=== PATIENT | male | born 1960 | race Caucasian/White ===

== ENCOUNTER 2017-07-16 22:38 | Inpatient (IN) | payer OTHER ==
--- NOTE | 2017-07-16 23:07 | HP ---
COWS - Scale GI Upset > 30mins: 3= Vomiting/Diarrhea CIWA Score - CIWA Score Nausea/Vomitin Muscle Tremors: 4-Moderate,w/Arms Extend Anxiety: 3 Agitation: 3 Paroxysmal Sweats: 3 Orientation: 0-Oriented Tacttile Disturbances: 0-None Auditory Disturbances: 0-None Visual Disturbances: 0-None Headache: 3-Moderate CIWA-Ar Total Score: 18 Admission ROS S - HPI Chief Complaint: Alcohol withdrawal symptoms Allergies/Adverse Reactions: Allergies Allergy/AdvReac Type Severity Reaction Status Date / Time Fish Containing Products Allergy Rash Verified 07/16/17 23:06 fish derived Allergy Rash Verified 07/16/17 23:06 morphine Allergy Rash Verified 07/16/17 23:06 History of Present Illness: 56 years old male with a long history of alcohol dependence is admitted for detox. Patient has been in previous detox and reports 2 years of sobriety. Patient has medical history of AFIB and denies suicidal ideation at this time. Exam Limitations: No Limitations - Ebola screening Have you traveled outside of the country in the last 21 days: No Have you had contact with anyone from an Ebola affected area: No Have you been sick,other than usual withdrawal symptoms: No Do you have a fever: No - Review of Systems Constitutional: Malaise, Night Sweats, Changes in sleep, Weakness EENT: reports: No Symptoms Reported Respiratory: reports: No Symptoms reported Cardiac: reports: Palpitations (H/O AFIB) GI: reports: Diarrhea (x 3), Nausea, Poor Fluid Intake, Vomiting, Abdominal cramping : reports: No Symptoms Reported Musculoskeletal: reports: Joint Pain, Muscle Pain, Muscle Weakness, Neck Pain Integumentary: reports: Flushing, Sweating Neuro: reports: Tingling, Tremors Endocrine: reports: No Symptoms Reported, Flushing, Increased Thirst, Increased Urine Hematology: reports: No Symptoms Reported Psychiatric: reports: Mood/Affect Appropiate, Orientated x3, Anxious Other Systems: Reviewed and Negative Patient History - Patient Medical History Hx Anemia: No Hx Asthma: No Hx Chronic Obstructive Pulmonary Disease (COPD): No Hx Cancer: No Hx Cardiac Disorders: Yes (AFIB) Hx Congestive Heart Failure: No Hx Hypertension: No Hx Hypercholesterolemia: No Hx Pacemaker: No HX Cerebrovascular Accident: No Hx Seizures: No Hx Dementia: No Hx Diabetes: No Hx Gastrointestinal Disorders: No Hx Liver Disease: No Hx Genitourinary Disorders: No Hx Sexually Transmitted Disorders: No Hx Renal Disease (ESRD): No Hx Thyroid Disease: No Hx Human Immunodeficiency Virus (HIV): No (Negative 2015) Hx Hepatitis C: No (Negative 2015) Hx Depression: Yes Hx Suicide Attempt: No (Denies suicidal ideation) Hx Bipolar Disorder: No Hx Schizophrenia: No - Patient Surgical History Past Surgical History: Yes Hx Neurologic Surgery: No Hx Cataract Extraction: No Hx Cardiac Surgery: No Hx Lung Surgery: No Hx Abdominal Surgery: No Hx Appendectomy: No Hx Cholecystectomy: No Hx Genitourinary Surgery: No Hx Orthopedic Surgery: Yes (L ANKLE FX SX IN 1999) Anesthesia Reaction: No - PPD History Previous Implant?: Yes Documented Results: Negative w/o proof Implanted On Prior R Admission?: Yes Date: 12/28/12 PPD to be Administered?: Yes - Reproductive History Patient is a Female of Child Bearing Age (11 -55 yrs old): No (Male) - Smoking Cessation Smoking history: Current every day smoker Have you smoked in the past 12 months: Yes Aproximately how many cigarettes per day: 20 Hx Chewing Tobacco Use: No Initiated information on smoking cessation: Yes 'Breaking Loose' booklet given: 07/16/17 - Substance & Tx. History Hx Alcohol Use: Yes Hx Substance Use: No Substance Use Type: Alcohol Hx Substance Use Treatment: Yes ([facility] 06/2017) - Substances Abused Alcohol Route: Oral Frequency: Daily Amount used: beer- 2 six packs Age of first use: 15 Date of Last Use: 07/16/17 Family Disease History - Family Disease History Family Disease History: CA: Father (HAD CA. OF THE COLON AND ), Other: Mother (HAD CVA AND ) Admission Physical Exam [facility] - Physical General Appearance: Yes: Moderate Distress HEENTM: Yes: EOMI, Normal Voice, ROSLYN Respiratory: Yes: Lungs Clear, Normal Breath Sounds, No Respiratory Distress Neck: Yes: Supple Breast: Yes: Breast Exam Deferred Cardiology: Yes: Regular Rhythm, Regular Rate, S1, S2 Abdominal: Yes: Normal Bowel Sounds, Soft Genitourinary: Yes: Within Normal Limits Back: Yes: Normal Inspection Musculoskeletal: Yes: Back pain, Muscle Pain, Muscle weakness Extremities: Yes: Tremors, Other (surgical scar to left foot) Neurological: Yes: Fully Oriented, Alert, Normal Response Integumentary: Yes: Dry, Other (left arm tatoo) Lymphatic: Yes: Within Normal Limits - Diagnostic (1) Alcohol dependence with uncomplicated withdrawal Current Visit: Yes Status: Chronic (2) Afib Current Visit: Yes Status: Chronic (3) Nicotine dependence Current Visit: Yes Status: Chronic (4) Syncope Current Visit: No Status: Chronic Cleared for Admission [facility] - Detox or Rehab [facility] Level of Care: Medically Managed Detox Regimen/Protocol: Librium [facility] Breath Alcohol Content Breath Alcohol Content: 0.224
[2017-07-16 23:08] VITALS: BMI 31.5
[2017-07-16] MEDS ORDERED: MAG HYDROX/AL HYDROX/SIMETH 30 ML UNIT-DOSE CUP PO PRN (23:35)
[2017-07-16] MEDS ORDERED: MAGNESIUM HYDROX 2400MG/30ML ORAL SUSPENSION 30 ML CUP PO PRN (23:35)
[2017-07-16] MEDS ORDERED: hydrOXYzine PAMOATE 50 MG CAPSULE (FP) PO PRN (23:35)
[2017-07-16] MEDS ORDERED: NICOTINE POLACRILEX 2 MG GUM BUC PRN (23:35)
[2017-07-16] MEDS ORDERED: LOPERAMIDE HCL 2 MG CAPSULE PO PRN (23:35)
[2017-07-16] MEDS ORDERED: P-EPHED 60MG/TRIPROLIDI 2.5MG TABLET PO PRN (23:35)
[2017-07-16] MEDS ORDERED: ACETAMINOPHEN 325 MG TABLET (FP) PO PRN (23:35)
[2017-07-16] MEDS ORDERED: IBUPROFEN 400 MG TABLET (FP) PO PRN (23:35)
[2017-07-16] MEDS ORDERED: MAGNESIUM CITRATE 300 ML BOTTLE PO PRN (23:35)
[2017-07-16] MEDS ORDERED: MENTHOL/PHENOL 1 EACH UD MM PRN (23:35)
[2017-07-16] MEDS ORDERED: guaiFENesin/D-METHORPHAN HB 10 ML UNIT-DOSE CUPS PO PRN (23:35)
[2017-07-17] MEDS ORDERED: chlordiazePOXIDE HCL 25 MG CAPSULE PO PRN (00:09)
[2017-07-17] MEDS ORDERED: chlordiazePOXIDE HCL 25 MG CAPSULE PO ONE (00:30)
[2017-07-17] MEDS: chlordiazePOXIDE HCL 25 MG CAPSULE PO SCH ×4 (06:18→22:24)
--- NOTE | 2017-07-17 07:40 | CONSULT ---
[facility] Psychiatric Consult - Data Date of interview: 07/17/17 Admission source: [facility] Identifying data: This is 56 years old male with no psychiatric hospitalization history itoxicated with ;. Alcohol and Nicotine Substance Abuse History: - Smoking Cessation. Smoking history: Current every day smoker. Have you smoked in the past 12 months: Yes. Aproximately how many cigarettes per day: 20. Hx Chewing Tobacco Use: No. Initiated information on smoking cessation: Yes. 'Breaking Loose' booklet given: 07/16/17. - Substance & Tx. History. Hx Alcohol Use: Yes. Hx Substance Use: No. Substance Use Type : Alcohol. Hx Substance Use Treatment: Yes ([facility] 06/2017). - Substances Abused. Alcohol. Route: Oral. Frequency: Daily. Amount used: beer- 2 six packs. Age of first use: 15. Date of Last Use: 07/16/17 Medical History: A. Fib, Syncope history Psychiatric History: Patient reports history of deprssion,reports no medications taking prior to admission Physical/Sexual Abuse/Trauma History: Denies Additional Comment: Obnservation. Detox Unit Care Protocol Mental Status Exam - Mental Status Exam Alert and Oriented to: Person Cognitive Function: Fair Patient Appearance: Unkempt Mood: Sad Affect: Flat Patient Behavior: Sedated Speech Pattern: Delayed Voice Loudness: Mildly Soft/Quiet Thought Process: Circumstantial Thought Disorder: Being Controlled Hallucinations: Denies Suicidal Ideation: Denies Homicidal Ideation: Denies Insight/Judgement: Fair Sleep: Difficulty falling asleep Appetite: Fair Muscle strength/Tone: Mild Hypotonicity Gait/Station: Shuffling Additional Comments: Obnservation. Detox Unit Care Protocol Psychiatric Findings - Problem List ([place] 1, 2,3) (1) Drug-induced mood disorder Current Visit: Yes Status: Acute (2) Alcohol dependence with uncomplicated withdrawal Current Visit: Yes Status: Chronic (3) Nicotine dependence Current Visit: Yes Status: Chronic - Initial Treatment Plan Initial Treatment Plan: Obnservation. Detox Unit Care Protocol
[2017-07-17] MEDS ORDERED: RIVAROXABAN 20 MG TABLET PO SCH (10:00)
[2017-07-17 10:08] LABS: MCHC 33.8 g/dl (32.0-35.9); MEAN CELL VOLUME 94.8 fl (80-96); MEAN PLT VOLUME 8.3 fl (7.5-11.1); PLATELET COUNT 306 K/MM3 (134-434); RDW 14.1 % (11.9-15.9); WHITE BLOOD COUNT 6.7 K/mm3 (4.0-10.0)
--- NOTE | 2017-07-17 10:10 | PN ---
BHS CIWA - CIWA Score Nausea/Vomitin Muscle Tremors: 3 Anxiety: 3 Agitation: 2 Paroxysmal Sweats: 1-Minimal Palms Moist Orientation: 0-Oriented Tacttile Disturbances: 1-Very Mild Itch/Numbness Auditory Disturbances: 1-Very Mild Visual Disturbances: 0-None Headache: 2-Mild CIWA-Ar Total Score: 16 BHS Progress Note (SOAP) Subjective: ALERT,IRRITABLE,ANXIOUS,INTERRUPTED SLEEP,TREMOR Objective: 07/17/17 10:09 Vital Signs Temperature 97.8 F 07/17/17 10:02 Pulse Rate 94 H 07/17/17 10:02 Respiratory Rate 18 07/17/17 10:02 Blood Pressure 145/78 07/17/17 10:02 O2 Sat by Pulse Oximetry (%) Assessment: 07/17/17 10:10 WITHDRAWAL SYMPTOM Plan: CONTINUE DETOX
[2017-07-17] MEDS ORDERED: METOPROLOL SUCCINATE 25 MG TAB.SR.24H (FP) PO ONE (10:20)
[2017-07-17 10:21] LABS: ALBUMIN 3.6 g/dl (3.4-5.0); ALK PHOS 68 U/L (45-117); ANION GAP 13 (8-16); BILIRUBIN,TOTAL 0.3 mg/dL (0.2-1.0); CALCIUM 9.1 mg/dL (8.5-10.1); CO2 24 mmol/L (21-32); CREATININE 0.7 mg/dL (0.7-1.3); GLUCOSE,RANDOM 105 mg/dL (74-106); SGOT/AST 32 U/L (15-37); SGPT/ALT 40 U/L (12-78); TOT PROT 6.9 g/dl (6.4-8.2)
[2017-07-17] MEDS: PRENATAL VITAMINS W/ FOLIC ACID TABLET (FP) PO SCH (10:33)
[2017-07-17] MEDS: NICOTINE 14 MG/24 HOURS TOPICAL PATCH TD SCH (10:33)
--- NOTE | 2017-07-17 12:17 | EKG ---
Test Reason : Blood Pressure : / mmHG Vent. Rate : 075 BPM Atrial Rate : 075 BPM P-R Int : 158 ms QRS Dur : 086 ms QT Int : 380 ms P-R-T Axes : 063 057 012 degrees QTc Int : 424 ms NORMAL SINUS RHYTHM NORMAL ECG NO PREVIOUS ECGS AVAILABLE Confirmed by ARPITA PONCE MD ([id number]) on 07/17/2017 12:17:34 PM Referred By: Confirmed By:ARPITA PONCE MD
[2017-07-17 14:33] LABS: URINE APPEARANCE SLCLOUDY; URINE BILIRUBIN NEGATIVE (NEGATIVE); URINE BLOOD 1+ (NEGATIVE); URINE COLOR YELLOW; URINE GLUCOSE (UA) NEGATIVE (NEGATIVE); URINE KETONE NEGATIVE (NEGATIVE); URINE NITRITE NEGATIVE (NEGATIVE); URINE PROTEIN NEGATIVE (NEGATIVE); URINE UROBILINOGEN NEGATIVE mg/dL (0.2-1.0)
[2017-07-17 15:14] LABS: URINE BACTERIA RARE /hpf (NONE SEEN); URINE HYALINE CAST 1 /lpf; URINE MUCUS MODERATE; URINE RBC 2; URINE WBC 1
[2017-07-17] MEDS: RIVAROXABAN 20 MG TABLET PO SCH (17:46)
[2017-07-17 21:24] LABS: URINE LEUK ESTERASE Negative (NEGATIVE)
[2017-07-17] MEDS: THIAMINE HCL 100 MG TABLET (FP) PO SCH (22:24)
[2017-07-18] MEDS: chlordiazePOXIDE HCL 25 MG CAPSULE PO SCH ×4 (05:37→23:25)
[2017-07-18] MEDS: NICOTINE 14 MG/24 HOURS TOPICAL PATCH TD SCH (10:10)
[2017-07-18] MEDS: METOPROLOL SUCCINATE 25 MG TAB.SR.24H (FP) PO SCH (10:10)
[2017-07-18] MEDS: PRENATAL VITAMINS W/ FOLIC ACID TABLET (FP) PO SCH (10:10)
--- NOTE | 2017-07-18 11:39 | PN ---
S CIWA - CIWA Score Nausea/Vomitin Muscle Tremors: 3 Anxiety: 3 Agitation: 2 Paroxysmal Sweats: 1-Minimal Palms Moist Orientation: 0-Oriented Tacttile Disturbances: 1-Very Mild Itch/Numbness Auditory Disturbances: 1-Very Mild Visual Disturbances: 0-None Headache: 2-Mild CIWA-Ar Total Score: 16 BHS Progress Note (SOAP) Subjective: ALERT,IRRITABLE,ANXIOUS,INTERRUPTED SLEEP,TREMOR Objective: 07/18/17 11:37 Vital Signs Temperature 97.0 F L 07/18/17 10:37 Pulse Rate 73 07/18/17 10:37 Respiratory Rate 16 07/18/17 10:37 Blood Pressure 148/87 07/18/17 10:37 O2 Sat by Pulse Oximetry (%) Laboratory Last Values WBC 6.7 K/mm3 (4.0-10.0) 07/17/17 07:00 RBC 4.71 M/mm3 (4.00-5.60) 07/17/17 07:00 Hgb 15.1 GM/dL (11.7-16.9) 07/17/17 07:00 Hct 44.6 % (35.4-49) 07/17/17 07:00 MCV 94.8 fl (80-96) 07/17/17 07:00 MCH 32.0 pg (25.7-33.7) 07/17/17 07:00 MCHC 33.8 g/dl (32.0-35.9) 07/17/17 07:00 RDW 14.1 % (11.9-15.9) 07/17/17 07:00 Plt Count 306 K/MM3 (134-434) D 07/17/17 07:00 MPV 8.3 fl (7.5-11.1) 07/17/17 07:00 Sodium 143 mmol/L (136-145) 07/17/17 07:00 Potassium 3.8 mmol/L (3.5-5.1) 07/17/17 07:00 Chloride 106 mmol/L (98-107) 07/17/17 07:00 Carbon Dioxide 24 mmol/L (21-32) 07/17/17 07:00 Anion Gap 13 (8-16) 07/17/17 07:00 BUN 8 mg/dL (7-18) 07/17/17 07:00 Creatinine 0.7 mg/dL (0.7-1.3) D 07/17/17 07:00 Creat Clearance w eGFR > 60 (>60) 07/17/17 07:00 Random Glucose 105 mg/dL (74-106) 07/17/17 07:00 Calcium 9.1 mg/dL (8.5-10.1) 07/17/17 07:00 Total Bilirubin 0.3 mg/dL (0.2-1.0) D 07/17/17 07:00 AST 32 U/L (15-37) D 07/17/17 07:00 ALT 40 U/L (12-78) 07/17/17 07:00 Alkaline Phosphatase 68 U/L (45-117) 07/17/17 07:00 Total Protein 6.9 g/dl (6.4-8.2) 07/17/17 07:00 Albumin 3.6 g/dl (3.4-5.0) 07/17/17 07:00 Urine Color Yellow 07/17/17 09:50 Urine Appearance Slcloudy 07/17/17 09:50 Urine pH 5.0 (5.0-8.0) 07/17/17 09:50 Ur Specific [place] 1.025 (1.001-1.035) 07/17/17 09:50 Urine Protein Negative (NEGATIVE) 07/17/17 09:50 Urine Glucose (UA) Negative (NEGATIVE) 07/17/17 09:50 Urine Ketones Negative (NEGATIVE) 07/17/17 09:50 Urine Blood 1+ (NEGATIVE) H 07/17/17 09:50 Urine Nitrite Negative (NEGATIVE) 07/17/17 09:50 Urine Bilirubin Negative (NEGATIVE) 07/17/17 09:50 Urine Urobilinogen Negative mg/dL (0.2-1.0) 07/17/17 09:50 Ur Leukocyte Esterase Negative (NEGATIVE) 07/17/17 09:50 Urine WBC (Auto) 1 07/17/17 09:50 Urine RBC (Auto) 2 07/17/17 09:50 Ur Epithelial Cells Rare /hpf (FEW) 07/17/17 09:50 Urine Bacteria Rare /hpf (NONE SEEN) 07/17/17 09:50 Hyaline Casts 1 /lpf 07/17/17 09:50 Urine Mucus Moderate 07/17/17 09:50 RPR Titer Nonreactive (NONREACTIVE) 07/17/17 07:00 Assessment: 07/18/17 11:38 WITHDRAWAL SYMPTOM Plan: CONTINUE DETOX
[2017-07-18] MEDS: RIVAROXABAN 20 MG TABLET PO SCH (17:28)
[2017-07-18] MEDS: THIAMINE HCL 100 MG TABLET (FP) PO SCH (23:26)
[2017-07-19] MEDS: chlordiazePOXIDE 5 MG CAPSULE PO SCH ×4 (05:31→22:24)
--- NOTE | 2017-07-19 09:44 | PN ---
BHS Progress Note (SOAP) Subjective: interrupted sleep, Objective: 07/19/17 09:42 Vital Signs Temperature 96.8 F L 07/19/17 06:03 Pulse Rate 51 L 07/19/17 06:03 Respiratory Rate 16 07/19/17 06:03 Blood Pressure 147/77 07/19/17 06:03 O2 Sat by Pulse Oximetry (%) pt aox3 in nad ambulating Assessment: 07/19/17 09:43 withdrawal sx's Plan: cont. detox increase fluids d/c in am
[2017-07-19] MEDS: PRENATAL VITAMINS W/ FOLIC ACID TABLET (FP) PO SCH (10:06)
[2017-07-19] MEDS: METOPROLOL SUCCINATE 25 MG TAB.SR.24H (FP) PO SCH (10:06)
[2017-07-19] MEDS: NICOTINE 14 MG/24 HOURS TOPICAL PATCH TD SCH (10:07)
[2017-07-19] MEDS: RIVAROXABAN 20 MG TABLET PO SCH (17:32)
[2017-07-19] MEDS: THIAMINE HCL 100 MG TABLET (FP) PO SCH (22:24)
[2017-07-20] MEDS ORDERED: chlordiazePOXIDE HCL 10 MG CAPSULE PO SCH (05:00)
[2017-07-20 06:28] VITALS: BP 116/62; PULSE 48; TEMP 97.2
[2017-07-20] MEDS: PRENATAL VITAMINS W/ FOLIC ACID TABLET (FP) PO SCH (09:18)
[2017-07-20] MEDS: METOPROLOL SUCCINATE 25 MG TAB.SR.24H (FP) PO SCH (09:18)
[2017-07-20] MEDS: NICOTINE 14 MG/24 HOURS TOPICAL PATCH TD SCH (09:19)
--- NOTE | 2017-07-20 10:34 | DS ---
[facility] Detox Discharge Summary Admission Date: 07/16/17 Discharge Date: 07/20/17 - History Present History: Alcohol Dependence Pertinent Past History: HTN AF by hx. - Physical Exam Results Vital Signs: Vital Signs Temperature 97.2 F L 07/20/17 06:00 Pulse Rate 48 L 07/20/17 06:00 Respiratory Rate 18 07/20/17 06:00 Blood Pressure 116/62 07/20/17 06:00 O2 Sat by Pulse Oximetry (%) Pertinent Admission Physical Exam Findings: Withdrawal sx. Laboratory Last Values WBC 6.7 K/mm3 (4.0-10.0) 07/17/17 07:00 RBC 4.71 M/mm3 (4.00-5.60) 07/17/17 07:00 Hgb 15.1 GM/dL (11.7-16.9) 07/17/17 07:00 Hct 44.6 % (35.4-49) 07/17/17 07:00 MCV 94.8 fl (80-96) 07/17/17 07:00 MCH 32.0 pg (25.7-33.7) 07/17/17 07:00 MCHC 33.8 g/dl (32.0-35.9) 07/17/17 07:00 RDW 14.1 % (11.9-15.9) 07/17/17 07:00 Plt Count 306 K/MM3 (134-434) D 07/17/17 07:00 MPV 8.3 fl (7.5-11.1) 07/17/17 07:00 Sodium 143 mmol/L (136-145) 07/17/17 07:00 Potassium 3.8 mmol/L (3.5-5.1) 07/17/17 07:00 Chloride 106 mmol/L (98-107) 07/17/17 07:00 Carbon Dioxide 24 mmol/L (21-32) 07/17/17 07:00 Anion Gap 13 (8-16) 07/17/17 07:00 BUN 8 mg/dL (7-18) 07/17/17 07:00 Creatinine 0.7 mg/dL (0.7-1.3) D 07/17/17 07:00 Creat Clearance w eGFR > 60 (>60) 07/17/17 07:00 Random Glucose 105 mg/dL (74-106) 07/17/17 07:00 Calcium 9.1 mg/dL (8.5-10.1) 07/17/17 07:00 Total Bilirubin 0.3 mg/dL (0.2-1.0) D 07/17/17 07:00 AST 32 U/L (15-37) D 07/17/17 07:00 ALT 40 U/L (12-78) 07/17/17 07:00 Alkaline Phosphatase 68 U/L (45-117) 07/17/17 07:00 Total Protein 6.9 g/dl (6.4-8.2) 07/17/17 07:00 Albumin 3.6 g/dl (3.4-5.0) 07/17/17 07:00 Urine Color Yellow 07/17/17 09:50 Urine Appearance Slcloudy 07/17/17 09:50 Urine pH 5.0 (5.0-8.0) 07/17/17 09:50 Ur Specific [place] 1.025 (1.001-1.035) 07/17/17 09:50 Urine Protein Negative (NEGATIVE) 07/17/17 09:50 Urine Glucose (UA) Negative (NEGATIVE) 07/17/17 09:50 Urine Ketones Negative (NEGATIVE) 07/17/17 09:50 Urine Blood 1+ (NEGATIVE) H 07/17/17 09:50 Urine Nitrite Negative (NEGATIVE) 07/17/17 09:50 Urine Bilirubin Negative (NEGATIVE) 07/17/17 09:50 Urine Urobilinogen Negative mg/dL (0.2-1.0) 07/17/17 09:50 Ur Leukocyte Esterase Negative (NEGATIVE) 07/17/17 09:50 Urine WBC (Auto) 1 07/17/17 09:50 Urine RBC (Auto) 2 07/17/17 09:50 Ur Epithelial Cells Rare /hpf (FEW) 07/17/17 09:50 Urine Bacteria Rare /hpf (NONE SEEN) 07/17/17 09:50 Hyaline Casts 1 /lpf 07/17/17 09:50 Urine Mucus Moderate 07/17/17 09:50 RPR Titer Nonreactive (NONREACTIVE) 07/17/17 07:00 labs noted - Treatment Hospital Course: Detox Protocol Followed, Detoxed Safely, Responded well, Discharged Condition Good, Rehab Referral Accepted Patient has Accepted a Rehab Referral to: [facility] on 07/22/17 - Medication Discharge Medications: Ambulatory Orders Rivaroxaban [Xarelto -] 20 mg PO DAILY 07/16/17 Metoprolol Succinate [Toprol Xl -] 25 mg PO DAILY 07/20/17 - Diagnosis (1) Drug-induced mood disorder Status: Acute (2) Essential hypertension Status: Acute (3) History of atrial dilatation Status: Acute (4) Alcohol dependence with uncomplicated withdrawal Status: Acute (5) Nicotine dependence Status: Chronic Qualifiers: Nicotine product type: cigarettes Substance use status: uncomplicated Qualified Code(s): F17.210 - Nicotine dependence, cigarettes, uncomplicated - AMA Did Patient Leave Against Medical Advice: No
== END 2017-07-20 09:25 | disposition home or self-care (01) | DRG 775 ==
LOC: YASAS 22:38 → Y6N 23:30
PROVIDERS: ADMIT Internal Medicine; ATTEND Internal Medicine
PROC: HZ2ZZZZ Detoxification Services for Substance Abuse Treatment (ICD-10-PCS; principal; 2017-07-16)
DX: F10.230 Alcohol dependence with withdrawal, uncomplicated (principal); F17.210 Nicotine dependence, cigarettes, uncomplicated; F19.24 Other psychoactive substance dependence with psychoactive substance-induced mood disorder; F32.9 Major depressive disorder, single episode, unspecified; I10 Essential (primary) hypertension; I48.91 Unspecified atrial fibrillation; Z59.0 Homelessness
CPT/HCPCS: 36415; 80053; 81003; 81015; 85027; 86593; 93005; 93010